=== PATIENT | female | born 1990 | race Hispanic/Latino ===

== ENCOUNTER 2018-04-21 16:06 | Emergency (ER) | payer OTHER, SELFPAY ==
[2018-04-21 17:06] LABS: Absolute Lymphocytes (CBC) 1.4 K/uL (0.7-4.9); Absolute Monocytes 0.4 K/uL (0.1-1.3); Absolute Neutrophil 6.7 K/uL (1.8-8.0); Basophils % 0.3 % (0-1.3); Eosinophils % 0.6 % (0-4.4); Hematocrit 41.8 % (36.0-45.0); Lymphocytes % 16.1 % (15.3-44.8); MCH 32.2 pg (27.0-35.0); MCV 91.2 fL (80-100); MPV 8.2 fL (7.6-11.3); Monocytes % 4.9 % (3.3-12.3); RBC Red Blood Cell Count 4.59 M/uL (3.86-4.86)
[2018-04-21 17:57] LABS: BUN Blood Urea Nitrogen 11 mg/dL (7-18); Bicarbonate 28 mmol/L (21-32); Glucose Level 82 mg/dL (74-106); HCG, Quantitative 49347 mIU/mL (1-3); Potassium 3.6 mmol/L (3.5-5.1); Sodium Level 140 mmol/L (136-145)
--- NOTE | 2018-04-21 17:59 | EDPHYS ---
Physician Documentation [facility] Name: Naomie Bauer Age: 27 yrs Sex: Female : 1990 Arrival Date: 04/21/2018 Time: 16:09 Bed 26 Private MD: ED Physician Ronni Jenkins HPI: 04/21 16:59 This 27 yrs old Female presents to ER via Ambulatory with complaints of 8 wks kb , Abdominal Cramping, Vaginal Bleeding. 17:00 The patient presents to the emergency department with abdominal pain, of the right kb lower quadrant and left lower quadrant, described as crampy, vaginal bleeding, described as spotting. The estimated gestational age is 8 weeks. course: care: private OB physician, Dr. Thornton, Leakage of Fluid: none appreciated, Ultrasound: the patient has not had an ultrasound, Risk/complications: no obvious risks or complications are appreciated. Previous pregnancies: in previous pregnancies patient has had. Associated signs and symptoms: Pertinent positives: abdominal pain, vaginal bleeding. The patient has not experienced similar symptoms in the past. The patient has been recently seen by a physician: Dr. Thornton 1 week(s) ago. 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 - Social history:: Smoking status: Patient/guardian denies using tobacco. - Ebola Screening: : Patient negative for fever greater than or equal to 101.5 degrees Fahrenheit, and additional compatible Ebola Virus Disease symptoms Patient denies exposure to infectious person Patient denies travel to an Ebola-affected area in the 21 days before illness onset No symptoms or risks identified at this time. ROS: 17:00 Constitutional: Negative for fever, chills, and weight loss, Cardiovascular: Negative kb for chest pain, palpitations, and edema, Respiratory: Negative for shortness of breath, cough, wheezing, and pleuritic chest pain, MS/Extremity: Negative for injury and deformity, Skin: Negative for injury, rash, and discoloration, Neuro: Negative for headache, weakness, numbness, tingling, and seizure. 17:00 Abdomen/GI: Positive for abdominal cramps. 17:00 : Positive for vaginal bleeding. Exam: 17:00 Constitutional: This is a well developed, well nourished patient who is awake, alert, kb and in no acute distress. Head/Face: Normocephalic, atraumatic. Chest/axilla: Normal chest wall appearance and motion. Nontender with no deformity. No lesions are appreciated. Cardiovascular: Regular rate and rhythm with a normal S1 and S2. No gallops, murmurs, or rubs. Normal PMI, no JVD. No pulse deficits. Respiratory: Lungs have equal breath sounds bilaterally, clear to auscultation and percussion. No rales, rhonchi or wheezes noted. No increased work of breathing, no retractions or nasal flaring. Abdomen/GI: Soft, non-tender, with normal bowel sounds. No distension or tympany. No guarding or rebound. No evidence of tenderness throughout. Skin: Warm, dry with normal turgor. Normal color with no rashes, no lesions, and no evidence of cellulitis. MS/ Extremity: Pulses equal, no cyanosis. Neurovascular intact. Full, normal range of motion. Neuro: Awake and alert, GCS 15, oriented to person, place, time, and situation. Cranial nerves II-XII grossly intact. Motor strength 5/5 in all extremities. Sensory grossly intact. Cerebellar exam normal. Normal gait. Vital Signs: 16:26 Pulse 68; Resp 16; Temp 97.8; Pulse Ox 99% on R/A; Weight 69.85 kg; Height 5 ft. 5 in. sg (165.10 cm); Pain 3/10; 16:27 BP 124 / 87; sg 17:59 BP 123 / 96; Pulse 81; Resp 18; Pulse Ox 95% on R/A; tl3 16:26 Body Mass Index 25.63 (69.85 kg, 165.10 cm) MDM: 16:28 Patient medically screened. kb 16:59 Data reviewed: vital signs, nurses notes. Data interpreted: Pulse oximetry: on room air kb is 99 %. Interpretation: normal. 17:58 Counseling: I had a detailed discussion with the patient and/or guardian regarding: the kb historical points, exam findings, and any diagnostic results supporting the discharge/admit diagnosis, lab results, radiology results, the need for outpatient follow up, an OB/Gyne specialist, to return to the emergency department if symptoms worsen or persist or if there are any questions or concerns that arise at home. 04/21 16:32 Order name: Quantitative Hcg; Complete Time: 17:57 kb 04/21 16:32 Order name: Abo/rh Typing; Complete Time: 17:29 kb 04/21 16:32 Order name: Basic Metabolic Panel; Complete Time: 17:57 kb 04/21 16:32 Order name: CBC with Diff; Complete Time: 17:08 kb 04/21 16:42 Order name: Urine Dipstick--Ancillary (enter results) eb 04/21 16:42 Order name: Urine --Ancillary (enter results) eb 04/21 16:32 Order name: Urine Test (obtain specimen); Complete Time: 17:08 kb 04/21 16:32 Order name: IV Saline Lock; Complete Time: 16:56 kb 04/21 16:32 Order name: Labs collected and sent; Complete Time: 16:56 kb 04/21 16:32 Order name: NPO; Complete Time: 17:08 kb 04/21 16:32 Order name: Urine Dipstick-Ancillary (obtain specimen); Complete Time: 17:08 kb 04/21 16:59 Order name: US Transvaginal Ob kb Administered Medications: No medications were administered Disposition: 18:39 Co-signature as Attending Physician, Ronni Jenkins MD. Disposition: 04/21/18 17:58 Discharged to Home. Impression: Less than 8 weeks gestation of . - Condition is Stable. - Discharge Instructions: First Trimester of , [id number]. - Medication Reconciliation Form, Thank You Letter, Antibiotic Education, Prescription Opioid Use form. - Follow up: Emergency Department; When: As needed; Reason: Worsening of condition. Follow up: Private Physician; When: 2 - 3 days; Reason: Recheck today's complaints, Continuance of care, Re-evaluation by your physician. Signatures: Dispatcher [employer] Elmira Fowler, Ryan Trevizo RN RN sg Starr, Gregory, MD MD Yvette Martin RN RN tl3 Corrections: (The following items were deleted from the chart) 18:18 17:58 04/21/2018 17:58 Discharged to Home. Impression: Less than 8 weeks gestation of tl3 . Condition is Stable. Forms are Medication Reconciliation Form, Thank You Letter, Antibiotic Education, Prescription Opioid Use. Follow up: Emergency Department; When: As needed; Reason: Worsening of condition. Follow up: Private Physician; When: 2 - 3 days; Reason: Recheck today's complaints, Continuance of care, Re-evaluation by your physician. kb
--- NOTE | 2018-04-21 17:59 | ER ---
Nurse's Notes [facility] Name: Naomie Bauer Age: 27 yrs Sex: Female : 1990 Arrival Date: 04/21/2018 Time: 16:09 Bed 26 Private MD: Diagnosis: Less than 8 weeks gestation of Presentation: 04/21 16:25 Presenting complaint: Patient states: Lower abdominal cramping, and having vaginal sg bleeding that started today, sent me here to get evaluated because the vaginal bleeding has now increased to a heavy flow. Transition of care: patient was not received from another setting of care. Onset of symptoms was April 21, 2018. Risk Assessment: Do you want to hurt yourself or someone else? Patient reports no desire to harm self or others. Care prior to arrival: None. 16:25 Method Of Arrival: Ambulatory sg 16:25 Acuity: WARREN 3 sg 18:18 Initial Sepsis Screen: Does the patient meet any 2 criteria? No. Patient's initial tl3 sepsis screen is negative. Does the patient have a suspected source of infection? No. Patient's initial sepsis screen is negative. 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 - Social history:: Smoking status: Patient/guardian denies using tobacco. - Ebola Screening: : Patient negative for fever greater than or equal to 101.5 degrees Fahrenheit, and additional compatible Ebola Virus Disease symptoms Patient denies exposure to infectious person Patient denies travel to an Ebola-affected area in the 21 days before illness onset No symptoms or risks identified at this time. Screenin:44 Abuse screen: Denies threats or abuse. Nutritional screening: No deficits noted. tl3 Tuberculosis screening: No symptoms or risk factors identified. Fall Risk None identified. Assessment: 16:44 General: Appears in no apparent distress. comfortable, slender, well groomed, well tl3 developed, well nourished, Behavior is calm, cooperative, appropriate for age. Pain: Complains of pain in right lower quadrant and left lower quadrant Quality of pain is described as mild intermittent cramping. Neuro: Level of Consciousness is awake, alert, obeys commands, Oriented to person, place, time, situation, Appropriate for age. Cardiovascular: Patient's skin is warm and dry. Respiratory: Airway is patent Respiratory effort is even, unlabored, Respiratory pattern is regular, symmetrical. GI: Bowel sounds present X 4 quads. Abd is soft and non tender X 4 quads. : Urine is. EENT: No signs and/or symptoms were reported regarding the EENT system. Derm: No signs and/or symptoms reported regarding the dermatologic system. Musculoskeletal: No signs and/or symptoms reported regarding the musculoskeletal system. 17:59 Reassessment: No changes from previously documented assessment. Patient and/or family tl3 updated on plan of care and expected duration. Pain level reassessed. Patient is alert, oriented x 3, equal unlabored respirations, skin warm/dry/pink. no needs at this time. Vital Signs: 16:26 Pulse 68; Resp 16; Temp 97.8; Pulse Ox 99% on R/A; Weight 69.85 kg; Height 5 ft. 5 in. sg (165.10 cm); Pain 3/10; 16:27 BP 124 / 87; sg 17:59 BP 123 / 96; Pulse 81; Resp 18; Pulse Ox 95% on R/A; tl3 16:26 Body Mass Index 25.63 (69.85 kg, 165.10 cm) ED Course: 16:09 Patient arrived in ED. mr 16:13 Elmira Browning FNP-C is [facility]. kb 16:13 Ronni Jenkins MD is Attending Physician. kb 16:26 Triage completed. sg 16:28 Yvette Martin, RENETTA is Primary Nurse. tl3 16:28 Arm band placed on. sg 16:44 Patient has correct armband on for positive identification. Placed in gown. Bed in low tl3 position. Call light in reach. Side rails up X 1. Pulse ox on. NIBP on. Warm blanket given. Pillow given. 16:44 No provider procedures requiring assistance completed. Initial lab(s) drawn, by va, tl3 sent to lab. Urine collected: clean catch specimen, clear. Inserted saline lock: 22 gauge in left antecubital area, using aseptic technique. Blood collected. 18:17 IV discontinued, intact, bleeding controlled, No redness/swelling at site. Pressure tl3 dressing applied. 18:20 US Transvaginal Ob In Process Unspecified. EDMS Administered Medications: No medications were administered Outcome: 17:58 Discharge ordered by . shamar 18:17 Discharged to home ambulatory. tl3 18:17 Condition: good 18:17 Discharge instructions given to patient, family, Instructed on follow up and referral plans. 18:18 Patient left the ED. tl3 Signatures: Dispatcher [employer] EDMS Elmira Browning, IT TECHNICAL SPECIALIST-C IT TECHNICAL SPECIALIST-Ryan Hahn, RN RN Gricel Bone Tammy, RN RN tl3
--- NOTE | 2018-04-21 18:39 | RAD REPORT ---
EXAM DESCRIPTION: US - Transvaginal OB - 04/21/2018 6:20 pm CLINICAL HISTORY: ABD CRAMPING, COMPARISON: Transvaginal OB dated 08/23/2017 FINDINGS: A single gestational sac is seen within the uterus. The shape of the sac is within normal limits for gestational age. Within the sac is a single pole with crown-rump length of 5 mm, cor relating to estimated gestational age of 6 weeks 1 day. Estimated date of delivery is 12/13/2018. Heart rate is 124 BPM.. The placenta is not yet developed due to early gestational age. The maternal adnexa and ovaries are within normal limits. Normal Doppler blood flow was demonstrated to both ovaries. 4 cm right ovarian cyst. IMPRESSION: Single live early intrauterine gestation with estimated gestational age of 6 weeks 1 day , JIMBO 12/13/2018. No unusual or unexpected finding.
[2018-04-21 20:29] LABS: Urine Blood 3+ (NEG); Urine Glucose NEGATIVE (NEG); Urine Protein 1+ (NEG); Urine pH 7.5 (5.0-7.0)
== END 2018-04-21 18:18 | disposition home or self-care (01) ==
LOC: ER 16:06
DX: O26.851 Spotting complicating pregnancy, first trimester (principal); Z3A.01 Less than 8 weeks gestation of pregnancy
CPT/HCPCS: 36415; 76817; 80048; 81003; 81025; 84702; 85025; 86900; 86901; 99284

== ENCOUNTER 2018-12-03 10:31 | Inpatient (IN) | payer OTHER ==
[2018-12-03] MEDS ORDERED: CARBOPROST TROME 250 MCG/ML IM PRN (10:41)
[2018-12-03] MEDS ORDERED: METHYLERGONOVINE 0.2MG/ML AMP IM PRN (10:41)
[2018-12-03] MEDS ORDERED: PROMETHAZINE 25 MG/ML VIAL IM PRN (10:41)
[2018-12-03] MEDS ORDERED: MIDAZOLAM HCL 2 MG/2 ML INJ IV PRN (10:41)
[2018-12-03] MEDS ORDERED: BUTORPHANOL 1 MG/ML INJ IV PRN (10:41)
[2018-12-03] MEDS ORDERED: Ringers Lactate 1,000 ML IV PRN (10:41)
[2018-12-03] MEDS ORDERED: MEPERIDINE HCL 25 MG/0.5 ML IV PRN (10:41)
[2018-12-03] MEDS ORDERED: Ringers Lactate 1,000 ML IV SCH (11:00)
[2018-12-03] MEDS ORDERED: OXYTOCIN/LR 20 UNIT/1,000 ML BAG IV SCH ×2 (11:00→17:00)
[2018-12-03 11:07] LABS: RPR Titer ND
[2018-12-03 11:17] LABS: Urine Appearance CLOUDY; Urine Blood 3+ (NEG); Urine Color DK YELLOW; Urine Glucose NEGATIVE (NEG); Urine Protein 1+ (NEG); Urine Specific Gravity 1.025 (1.005-1.030); Urine pH 6.5 (5.0-7.0)
[2018-12-03 11:21] LABS: Absolute Lymphocytes (CBC) 1.2 K/uL (0.7-4.9); Absolute Monocytes 0.6 K/uL (0.1-1.3); Absolute Neutrophil 10.9 K/uL (1.8-8.0); Basophils % 0.3 % (0-1.3); Eosinophils % 0.1 % (0-4.4); Hematocrit 44.4 % (36.0-45.0); Lymphocytes % 9.3 % (15.3-44.8); MPV 8.9 fL (7.6-11.3); Monocytes % 4.4 % (3.3-12.3); RBC Red Blood Cell Count 4.74 M/uL (3.86-4.86)
[2018-12-03 11:35] LABS: Urine Microscopic Reflex ORDER UMIC
[2018-12-03 11:58] LABS: Blood Morphology Comment NOT SEEN (NOT SEEN); Platelet Estimate ADEQ; Urine Bacteria 20-50 /HPF (<20); Urine White Blood Cell Casts OK
[2018-12-03 11:59] LABS: Urine Culture Reflex Order REFLEXED
[2018-12-03 12:00] LABS: Urine Bilirubin 1+ (NEG)
[2018-12-03 12:46] VITALS: BMI 30.2
[2018-12-03] MEDS ORDERED: LIDOCAINE 1% MPF 30 ML VIAL ONE (14:43)
[2018-12-03] MEDS ORDERED: Oxycodone HCl/Acetaminophen 1 TAB TAB PO PRN ×2 (16:44)
[2018-12-03] MEDS ORDERED: DIPHENHYDRAMINE 25 MG TAB/CAP PO PRN (16:44)
[2018-12-03] MEDS ORDERED: BISACODYL 10 MG RECTAL SUPP RECT PRN (16:44)
[2018-12-03] MEDS ORDERED: DOCUSATE NA/SENNA CONC 1 TAB PO PRN (16:44)
[2018-12-03] MEDS ORDERED: ACETAMINOPHEN 500 MG TAB PO PRN (16:44)
--- NOTE | 2018-12-03 17:49 | PREOPHP ---
Date of Admission: 12/03/2018 History Of Present Illness: This is a 27-year-old 2, para 0, 38 weeks 4 days, has been up to labor and delivery twice in last 24 hours, came to my office, was noted to be in active labor 4 cm in the office, 90% effaced, vertex -1 station. Membranes bulging. Sent to labor and delivery. She is now 5 to 5.5 cm, 100% effaced, membranes bulging, rupture of membranes, has been using Lamaze glenroy thing techniques to best advantage. Full labor talk given. She is Rh positive, immune to Rubella, n egative beta strep screen. Anticipate delivery sometime later this afternoon. JOANNE/JAMES Voice ID: [id number]
[2018-12-03] MEDS ORDERED: CEFAZOLIN/SWI 1gm 1 GM/10 ML SYR IVP ONE (18:30)
[2018-12-03] MEDS ORDERED: CEFAZOLIN/SWI 1gm 1 GM/10 ML SYR ONE (18:41)
[2018-12-03] MEDS: IBUPROFEN 200 MG TAB PO PRN (19:39)
--- NOTE | 2018-12-03 20:01 | PN ---
The patient is now complete and pushing. She is very effective pusher, hopefully will not need much longer. Baby still looks good on the monitor. Vital signs stable. JOANNE/JAMES Voice ID: [id number] Report ID: [id number]
[2018-12-03 23:47] LABS: RPR (Rapid Plasma Reagin) NON-REACT (NON-REACT)
[2018-12-04] MEDS: IBUPROFEN 200 MG TAB PO PRN (15:32)
[2018-12-04 17:18] VITALS: BP 122/67; TEMP 97.2
--- NOTE | 2018-12-05 05:59 | DS ---
Date of Discharge: 12/04/2018 Hospital Course: Naomie Bauer is a 27-year-old primigravida at 38 weeks 4 days, came into my office in active labor, sent to Labor and Delivery. Noted to be 4 cm, 100% effaced, vertex, -1 station in m y office. Started on light Pitocin augmentation, progressed rapidly. Rh positive. Immune to Rubell a. Negative beta strep screen. Short second stage of 30 minutes to 45 minutes. Spontaneous vaginal delivery of 7 pound 10 ounce female, Apgars 9 and 9. First degree laceration on the right side of t he introitus, L shaped sutured with 2-0 chromic. Schultze delivery of the placenta was inspected and noted to be intact and normal, 300 cc or less blood loss. afebrile, ambulating and voidi ng. Lochia is normal. Will be dismissed later today. To report back to my office in 6 weeks for fo llowup, to report any temperature elevation of 100 degrees or greater, severe pain, heavy bleeding, o r any other type of abnormality. Request no analgesics on dismissal. Final Diagnoses: Intrauterine gestation, 38 weeks 4 days, spontaneous labor, and vaginal delivery. JOANNE/JAMES Voice ID: [id number] Report ID: [id number]
[2018-12-05 19:11] LABS: HBsAG Nonreactive (Nonreactive)
--- NOTE | 2018-12-09 15:58 | OP ---
Surgeon: Marck Thornton MD A 27-year-old primigravida, 38 weeks 4 days, came to the office in active labor, sent to Labor and De livery. Noted to be 4 cm, 100% effaced, vertex, -1 station in my office. Started on light Pitocin. Progressed rapidly, subsequently delivered a 7 pound 10 ounce female, Apgars 9 and 9. First-degree laceration right side of the introitus, sutured with 2-0 chromic. Rossie delivery of the placenta, which inspected and noted to be intact and normal. A 300 cc or less blood loss. Tolerated all proc edures well. Final Diagnoses: Intrauterine gestation, 38 weeks 4 days, spontaneous labor, vaginal delivery. JOANNE/JAMES Voice ID: [id number] Report ID: [id number]
== END 2018-12-04 19:50 | disposition home or self-care (01) | DRG 807 ==
LOC: 2ND-WC 10:31
PROVIDERS: ADMIT Specialist; ATTEND Specialist
PROC: 10E0XZZ Delivery of Products of Conception, External Approach (ICD-10-PCS; principal; 2018-12-03)
PROC: 0HQ9XZZ Repair Perineum Skin, External Approach (ICD-10-PCS; 2018-12-03)
DX: O70.0 First degree perineal laceration during delivery (principal); Z37.0 Single live birth; Z3A.38 38 weeks gestation of pregnancy; Z23 Encounter for immunization
CPT/HCPCS: 36415; 81003; 81015; 85025; 86592; 86850; 86900; 86901; 87086; 87088; 87340; 96372; 99218; J0595; J0690; J2175; J2210; J2550

== ENCOUNTER 2019-03-20 12:24 | Emergency (ER) | payer OTHER, SELFPAY ==
[2019-03-20 14:15] LABS: Absolute Lymphocytes (CBC) 1.1 K/uL (0.7-4.9); Basophils % 0.2 % (0-1.3); Hematocrit 43.4 % (36.0-45.0); Lymphocytes % 10.8 % (15.3-44.8); MPV 8.8 fL (7.6-11.3); RBC Red Blood Cell Count 4.67 M/uL (3.86-4.86)
[2019-03-20 14:30] LABS: Albumin 3.7 g/dL (3.4-5.0); Bilirubin Direct 0.1 mg/dL (0-0.2); Bilirubin Total 0.4 mg/dL (0.2-1.0); Potassium 3.8 mmol/L (3.5-5.1); Protein, Total 7.2 g/dL (6.4-8.2)
[2019-03-20 14:36] LABS: Urine Blood NEGATIVE (NEG); Urine Glucose NEGATIVE (NEG); Urine Protein 1+ (NEG)
[2019-03-20] MEDS ORDERED: NA CHLORIDE 0.9% 1,000 ML ONE (14:38)
[2019-03-20] MEDS ORDERED: KETOROLAC 30 MG/ML INJ ONE (14:38)
--- NOTE | 2019-03-20 15:23 | RAD REPORT ---
EXAM DESCRIPTION: US - Transvaginal Study Probe - 03/20/2019 2:53 pm CLINICAL HISTORY: Suprapubic pain, lower abdominal pain Preliminary findings provided at the time of the study. COMPARISON: None. TECHNIQUE: Endovaginal sonography was performed. FINDINGS: Endometrium is 6 mm in thickness with no focal abnormality. No myometrial mass. Uterus is normal in size at 9.3 x 4.9 x 6.0 cm. Normal size right ovary is seen with normal blood flow in the r ight ovarian stroma. Left ovary was not identifiable due to prominent left adnexal bowel gas. Moderat e free fluid is present in the cul-de-sac and adnexal regions. No involuted or ruptured cyst identifi ed. IMPRESSION: Free fluid is present in the cul-de-sac and bilateral adnexa with no blood or other abno rmal fluid collection. Uterus and right ovary show no suspicious findings. Left ovary and left adnexa are too obscured by bowel gas for assessment.
--- NOTE | 2019-03-20 20:30 | EDPHYS ---
Physician Documentation [facility] Name: Naomie Bauer Age: 28 yrs Sex: Female : 1990 Arrival Date: 03/20/2019 Time: 12:27 Bed 23 Private MD: ED Physician Prabhjot Herrera HPI: 03/20 13:45 This 28 yrs old Female presents to ER via Ambulatory with complaints of cp Dizziness, Abdominal Pain, Fever. 13:45 The patient presents with lightheadedness. cp 13:45 Patient's baseline: Neuro: alert and fully oriented, Motor: no deficits, Ambulation: cp walks without assistance, Speech: normal. 13:45 The patient presents with suprapubic abdominal pain. Onset: The symptoms/episode cp began/occurred suddenly, 1 hour(s) ago. Associated signs and symptoms: Pertinent negatives: diarrhea, dysuria, fever, hematuria, urinary frequency, vaginal bleeding, vaginal discharge. Associated signs and symptoms: Pertinent negatives: chest pain, focal weakness, syncope. Severity of symptoms: in the emergency department the symptoms are unchanged despite home interventions. 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 - Social history:: Smoking status: Patient/guardian denies using tobacco. - Ebola Screening: : Patient denies travel to an Ebola-affected area in the 21 days before illness onset. ROS: 13:55 Constitutional: Negative for body aches, chills, fever, poor PO intake. cp 13:55 Eyes: Negative for injury, pain, redness, and discharge. cp 13:55 ENT: Negative for drainage from ear(s), ear pain, sore throat, difficulty swallowing, difficulty handling secretions. 13:55 Cardiovascular: Negative for chest pain, palpitations. 13:55 Respiratory: Negative for cough, shortness of breath, wheezing. 13:55 Abdomen/GI: Positive for abdominal pain, of the suprapubic area, Negative for vomiting, diarrhea, constipation, black/tarry stool, rectal bleeding. 13:55 Back: Negative for radiated pain. 13:55 : Negative for urinary symptoms, vaginal bleeding, vaginal discharge. 13:55 Skin: Negative for rash. 13:55 Neuro: Positive for dizziness, Negative for altered mental status, headache, weakness. 13:55 All other systems are negative. Exam: 14:00 Constitutional: The patient appears in no acute distress, alert, awake, comfortable, cp non-toxic, well developed, well nourished. 14:00 Head/Face: Normocephalic, atraumatic. cp 14:00 Eyes: Periorbital structures: appear normal, Conjunctiva: normal, no exudate, no injection, Sclera: no appreciated abnormality, Lids and lashes: appear normal, bilaterally. 14:00 ENT: External ear(s): are unremarkable, Nose: is normal, Mouth: is normal, Posterior pharynx: is normal, airway is patent, no erythema, no exudate. 14:00 Chest/axilla: Inspection: normal, Palpation: is normal, no crepitus, no tenderness. 14:00 Cardiovascular: Rate: normal, Rhythm: regular. 14:00 Respiratory: the patient does not display signs of respiratory distress, Respirations: normal, no use of accessory muscles, no retractions, no splinting, no tachypnea, labored breathing, is not present, Breath sounds: are clear throughout, no decreased breath sounds, no stridor, no wheezing. 14:00 Abdomen/GI: Inspection: abdomen appears normal, Bowel sounds: active, all quadrants, Palpation: soft, in all quadrants, mild abdominal tenderness, in the suprapubic area, rebound tenderness, is not appreciated, involuntary guarding, is not appreciated. 14:00 Back: pain, is absent, ROM is normal. 14:00 Skin: no rash present. 15:18 : Pelvic Exam: The exam is refused by the patient/guardian. The risks and cp consequences are understood by the patient, Sexual behavior: the patient is sexually active, method of control is control pills. Vital Signs: 12:34 BP 121 / 77; Pulse 83; Resp 16; Temp 98.3; Pulse Ox 98% on R/A; Weight 74.84 kg (R); aj1 Height 5 ft. 5 in. (165.10 cm); 15:06 BP 112 / 69; Pulse 70; Resp 18; Pulse Ox 99% on R/A; mg2 16:10 BP 113 / 78; Pulse 70; Resp 18; Temp 98; Pulse Ox 100% on R/A; Pain 0/10; mg2 12:34 Body Mass Index 27.46 (74.84 kg, 165.10 cm) aj1 MDM: 13:23 Patient medically screened. cp 13:40 Differential diagnosis: appendicitis, dysmenorrhea, ectopic , nonspecific cp abdominal pain, ovarian cyst, pelvic inflammatory disease, urinary tract infection, vaginosis. 15:53 Data reviewed: vital signs, nurses notes, lab test result(s), radiologic studies, cp ultrasound. 15:53 Counseling: I had a detailed discussion with the patient and/or guardian regarding: the cp historical points, exam findings, and any diagnostic results supporting the discharge/admit diagnosis, lab results, radiology results, the need for outpatient follow up, an OB/Gyne specialist, to return to the emergency department if symptoms worsen or persist or if there are any questions or concerns that arise at home. Response to treatment: the patient's symptoms have markedly improved after treatment, and as a result, I will discharge patient. 03/20 13:37 Order name: IV Saline Lock; Complete Time: 13:51 cp 03/20 13:37 Order name: Labs collected and sent; Complete Time: 13:51 cp 03/20 13:37 Order name: Urine Dipstick-Ancillary (obtain specimen); Complete Time: 13:45 cp 03/20 13:37 Order name: Urine Test (obtain specimen); Complete Time: 13:45 cp Administered Medications: 15:05 Not Given (Patient Refused): TORadol 30 mg IVP once mg2 15:05 Drug: NS 0.9% 1000 ml Route: IV; Rate: 1 bolus; Site: left antecubital; mg2 16:10 Follow up: Response: No adverse reaction; IV Status: Completed infusion; IV Intake: mg2 1000ml Disposition: 03/21 07:27 Co-signature as Attending Physician, Prabhjot Herrera MD I agree with the assessment and kdr plan of care. Disposition: 03/20/19 15:54 Discharged to Home. Impression: Abdominal and pelvic pain. - Condition is Stable. - Discharge Instructions: Abdominal Pain, Adult, Pelvic Pain, Female. - Prescriptions for Ibuprofen 800 mg Oral Tablet - take 1 tablet by ORAL route every 8 hours As needed take with food; 30 tablet. - Medication Reconciliation Form, Thank You Letter, Antibiotic Education, Prescription Opioid Use form. - Follow up: Marck Thornton MD; When: 2 - 3 days; Reason: Worsening of condition. - Problem is new. - Symptoms have improved. Signatures: Georgette Ferrari RN RN aj1 Prabhjot Herrera MD MD kdr Yonatan Victoria PA PA cp Mk Batista RN RN mg2 Corrections: (The following items were deleted from the chart) 03/20 16:11 15:54 03/20/2019 15:54 Discharged to Home. Impression: Abdominal and pelvic pain. mg2 Condition is Stable. Forms are Medication Reconciliation Form, Thank You Letter, Antibiotic Education, Prescription Opioid Use. Follow up: Marck Thornton; When: 2 - 3 days; Reason: Worsening of condition. Problem is new. Symptoms have improved. cp 03/21 13:49 13:48 Patient's baseline: Neuro: alert and fully oriented, Motor: no deficits, cp Ambulation: walks without assistance, Speech: normal, cp
--- NOTE | 2019-03-20 20:32 | ER ---
Nurse's Notes [facility] Name: Naomie Bauer Age: 28 yrs Sex: Female : 1990 Arrival Date: 03/20/2019 Time: 12:27 Bed 23 Private MD: Diagnosis: Abdominal and pelvic pain Presentation: 03/20 12:32 Presenting complaint: Patient states: Suprapubic pain for the past hour. Denies aj1 dysuria, urinary frequency. Denies vaginal discharge. Denies N/V/D. Transition of care: patient was not received from another setting of care. Onset of symptoms was March 20, 2019. Risk Assessment: Do you want to hurt yourself or someone else? Patient reports no desire to harm self or others. Initial Sepsis Screen: Does the patient meet any 2 criteria? No. Patient's initial sepsis screen is negative. Does the patient have a suspected source of infection? Yes: Acute abdominal pain. Care prior to arrival: None. 12:32 Method Of Arrival: Ambulatory aj 12:32 Acuity: WARREN 3 aj1 Triage Assessment: 12:34 General: Appears in no apparent distress. comfortable, Behavior is calm, cooperative, aj1 appropriate for age. Pain: Complains of pain in suprapubic area Pain currently is 5 out of 10 on a pain scale. Neuro: Level of Consciousness is awake, alert, obeys commands. Cardiovascular: Patient's skin is warm and dry. Respiratory: Airway is patent Respiratory effort is even, unlabored, Respiratory pattern is regular, symmetrical. GI: Reports lower abdominal pain, Patient currently denies diarrhea, nausea, vomiting. : Denies burning with urination, discharge, urinary frequency. 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 - Social history:: Smoking status: Patient/guardian denies using tobacco. - Ebola Screening: : Patient denies travel to an Ebola-affected area in the 21 days before illness onset. Screenin:42 Abuse screen: Denies threats or abuse. Denies injuries from another. Nutritional mg2 screening: No deficits noted. Tuberculosis screening: No symptoms or risk factors identified. Fall Risk IV access (20 points). Assessment: 14:42 General: Appears in no apparent distress. comfortable, Behavior is calm, cooperative. mg2 Pain: Complains of pain in abdomen and suprapubic area Pain does not radiate. Pain currently is 4 out of 10 on a pain scale. Quality of pain is described as aching, Pain began gradually. Neuro: Level of Consciousness is awake, alert, obeys commands, Oriented to person, place, time, situation. Cardiovascular: Capillary refill < 3 seconds Patient's skin is warm and dry. Respiratory: Airway is patent Respiratory effort is even, unlabored, Respiratory pattern is regular, symmetrical. GI: Bowel sounds present X 4 quads. Abd is soft and non tender. : pls see urine dip. EENT: No signs and/or symptoms were reported regarding the EENT system. Derm: Skin is intact, is healthy with good turgor, Skin is pink, warm \T\ dry. normal. Musculoskeletal: Circulation, motion, and sensation intact. Capillary refill < 3 seconds. 14:44 Reassessment: sent to ultrasound via wheelchair. mg2 16:10 Reassessment: Patient denies pain at this time. Patient states feeling better. mg2 Vital Signs: 12:34 BP 121 / 77; Pulse 83; Resp 16; Temp 98.3; Pulse Ox 98% on R/A; Weight 74.84 kg (R); aj1 Height 5 ft. 5 in. (165.10 cm); 15:06 BP 112 / 69; Pulse 70; Resp 18; Pulse Ox 99% on R/A; mg2 16:10 BP 113 / 78; Pulse 70; Resp 18; Temp 98; Pulse Ox 100% on R/A; Pain 0/10; mg2 12:34 Body Mass Index 27.46 (74.84 kg, 165.10 cm) aj1 ED Course: 12:27 Patient arrived in ED. mr 12:33 Triage completed. aj1 12:34 Arm band placed on Patient placed in waiting room, Patient notified of wait time. aj1 13:22 Yonatan Victoria PA is PHCP. cp 13:22 Prabhjot Herrera MD is Attending Physician. cp 13:44 Mk Batista, RN is Primary Nurse. mg2 13:51 Initial lab(s) drawn, by me, sent to lab. Inserted saline lock: 22 gauge in left lt1 antecubital area, using aseptic technique. 14:44 Patient has correct armband on for positive identification. Pulse ox on. NIBP on. Door mg2 closed. Warm blanket given. 14:44 No provider procedures requiring assistance completed. mg2 15:53 Marck Thornton MD is Referral Physician. cp 16:10 IV discontinued, intact, bleeding controlled, No redness/swelling at site. Pressure mg2 dressing applied. Administered Medications: 15:05 Not Given (Patient Refused): TORadol 30 mg IVP once mg2 15:05 Drug: NS 0.9% 1000 ml Route: IV; Rate: 1 bolus; Site: left antecubital; mg2 16:10 Follow up: Response: No adverse reaction; IV Status: Completed infusion; IV Intake: mg2 1000ml Intake: 16:10 IV: 1000ml; Total: 1000ml. mg2 Outcome: 15:54 Discharge ordered by MD. cp 16:11 Discharged to home ambulatory. mg2 16:11 Condition: stable 16:11 Discharge instructions given to patient, Instructed on discharge instructions, follow up and referral plans. medication usage, Demonstrated understanding of instructions, follow-up care, medications, Prescriptions given X 1. 16:11 Patient left the ED. mg2 Signatures: Georgette Ferrari RN RN aj1 Lizandro Gricel mr Esme, Yonatan, PA PA cp Mk Batista RN RN mg2 Villar, Anne lt1
[2019-03-20 22:18] VITALS: BP 113/78; TEMP 98; O2SAT 100
== END 2019-03-20 16:11 | disposition home or self-care (01) ==
LOC: ER 12:24
DX: R10.2 Pelvic and perineal pain (principal); R10.9 Unspecified abdominal pain
CPT/HCPCS: 36415; 76830; 80048; 80076; 81003; 81025; 85025; 96360; 99284; J7030

== ENCOUNTER 2021-01-17 04:12 | Inpatient (IN) | payer BC, OTHER ==
[2021-01-17] MEDS ORDERED: BUTORPHANOL 1 MG/ML INJ IV PRN (04:14)
[2021-01-17] MEDS ORDERED: METHYLERGONOVINE 0.2MG/ML AMP IM PRN (04:14)
[2021-01-17] MEDS ORDERED: Ringers Lactate 1,000 ML IV PRN (04:14)
[2021-01-17] MEDS ORDERED: PROMETHAZINE INJ 25 MG/ML AMP IM PRN (04:14)
[2021-01-17] MEDS ORDERED: Ringers Lactate 1,000 ML IV SCH (05:00)
[2021-01-17] MEDS ORDERED: OXYTOCIN/LR 20 UNIT/1,000 ML BAG IV SCH (05:00)
[2021-01-17 05:14] LABS: Urine Appearance CLOUDY (Clear); Urine Bilirubin NEGATIVE (Negative); Urine Blood NEGATIVE (Negative); Urine Color YELLOW (Yellow); Urine Glucose NEGATIVE (Negative); Urine Protein NEGATIVE (Negative); Urine pH 6.5 (5.0-7.0)
[2021-01-17 05:19] LABS: Absolute Lymphocytes (CBC) 1.7 K/uL (0.7-4.9); Basophils % 0.5 % (0-1.3); Hematocrit 39.7 % (36.0-45.0); Lymphocytes % 24.2 % (15.3-44.8); RBC Red Blood Cell Count 4.14 M/uL (3.86-4.86)
[2021-01-17 05:23] VITALS: BMI 29.9
[2021-01-17 05:31] LABS: Urine Microscopic Reflex ORDER UMIC
[2021-01-17] MEDS ORDERED: IBUPROFEN 600 MG TAB PO PRN (06:00)
[2021-01-17 06:45] LABS: Urine Amorphous Sediment 1+ /HPF (NONE SEEN); Urine Bacteria >50 /HPF (<20); Urine RBC NONE SEEN /HPF (NONE SEEN)
--- NOTE | 2021-01-17 10:17 | PREOPHP ---
Date of Admission: 01/17/2021 History Of Present Illness: Naomie Bauer is a 30-year-old 3, para 1, at 39 weeks gestation, followed antepartum without complications. Rh positive. Immune to Rubella. Negative strep. COVID status pending. Family History: Mother with breast cancer. Otherwise noncontributory. Past Medical History: No serious medical illnesses. Past Surgical History: No previous surgeries. Allergies: NO ALLERGIES. Social History: Does not smoke. Physical Examination: HEENT: Clear. Pupils equal, round, reactive to light and accommodation. Conjunctivae well perfused . No oral, lingual, or buccal lesions. Chest and Lungs: Clear. Heart: Without murmurs, thrills, heaves, or rubs. Breasts: Without masses on previous visits. Abdomen: Term size. Extremities: Clear without edema, cyanosis, or clubbing. Assessment And Plan: The patient is approximately 2.5 to 3 cm, somewhat posterior, 60% effaced, vert ex, -1 station. Rupture of membranes. Clear fluid. Anticipate more active labor. Full labor talk given. Doing well at this p oint. NBC/MODL Voice ID: [id number]
[2021-01-17] MEDS ORDERED: FENTANYL/BUPIVACAINE/NS/PF 200 MCG/100 ML BAG EP PRN (12:13)
[2021-01-17] MEDS ORDERED: FENTANYL CITR 100 MCG/2 ML IV ONE (12:13)
[2021-01-17] MEDS ORDERED: ROPIVACAINE HCL 0.2% 20ML AMP IV ONE (12:13)
[2021-01-17] MEDS ORDERED: BUPIVACAINE 0.25% PF 10 ML VIAL IJ PRN (12:13)
[2021-01-17] MEDS: METHYLERGONOVINE 0.2 MG TAB PO PRN ×3 (14:57→23:00)
--- NOTE | 2021-01-17 15:06 | PN ---
Patient is alen regularly. It was just checked 30 minutes ago, was 4 cm, it is going natural at this point. Baby looks good. She is alen every 2 minutes. The baby is probably posterior as she is having some back discomfort. She will start pelvic rocks and I anticipate more rapid prog ress soon. JOANNE/JAMES Voice ID: [id number] Report ID: [id number]
--- NOTE | 2021-01-17 15:37 | PN ---
The patient is now approximately 7 cm, 90% to 100% effaced, vertex 0 station. I think she is getting ready to make good progress. She is going natural at this point. She is on 8 milliunits of Pitocin . Anticipate delivery relatively soon. JOANNE/JAMES Voice ID: [id number] Report ID: [id number]
--- NOTE | 2021-01-17 15:49 | OP ---
Surgeon: Marck Thornton MD A 30-year-old 3, para 1, 39 weeks gestation, delivered an estimated 8-pound female. Nuchal c ord x2 tightly, but good Apgars 9 and 9. No episiotomy. No laceration. Schultze delivery of the pl acenta. Uterus mildly hypotonic. 0.2 mg of Methergine, IV drip Pitocin, massage. Estimated blood lo ss 400, possibly 425 cc. Strep negative. COVID negative. Rh positive. Immune to Rubella. Tolerat ed all procedures well. Epidural was just instituted the last and gave really minimal effect. Final Diagnoses: Term intrauterine 39 weeks, spontaneous vaginal delivery, nuchal cord x2. Epidural anesthesia. Mild uterine hypotonus. NBC/MODL Voice ID: [id number] Report ID: [id number]
[2021-01-17 23:36] LABS: RPR (Rapid Plasma Reagin) NON-REACT (NON-REACT)
[2021-01-18] MEDS ORDERED: IBUPROFEN 600 MG TAB ONE (01:07)
[2021-01-18] MEDS: METHYLERGONOVINE 0.2 MG TAB PO PRN (06:20)
--- NOTE | 2021-01-18 09:23 | DS ---
This is a 30-year-old 3, para 1, 39 weeks' gestation, delivered an 3-evjho-9-ounce female, Ap gars 9 and 9. Nuchal cord x2. Epidural anesthesia although is minimally effective. Rafal john of the placenta. Mild uterine hypotonus. Methergine 0.2 mg IM as well as IV drip Pitocin massage . Estimated blood loss 400 cc approximately. The patient is Rh positive, immune to rubella, negativ e strep, negative COVID. , afebrile, ambulating, voiding. Lochia is normal. The patient is taking no analgesics, requests none on dismissal. She has had her Tdap immunization. She has no post epidural problems. Will be dismissed later today to report back to my office in 6 weeks for fol lowup, to report any temperature elevation of 100 degrees or greater, severe pain, heavy bleeding, or any other type abnormalities. Final Diagnoses: Term intrauterine of 39 weeks. Vaginal delivery. Epidural anesthesia. Mild uterine hypertonus. JOANNE/CEL Voice ID: [id number] Report ID: [id number]
[2021-01-18 11:39] VITALS: BP 125/78; TEMP 97.9
[2021-01-19 19:20] LABS: HBsAG Nonreactive (Nonreactive)
== END 2021-01-18 16:15 | disposition home or self-care (01) | DRG 807 ==
LOC: 2ND-WC 04:12
PROVIDERS: ADMIT Specialist; ATTEND Specialist
PROC: 10E0XZZ Delivery of Products of Conception, External Approach (ICD-10-PCS; principal; 2021-01-17)
PROC: 10907ZC Drainage of Amniotic Fluid, Therapeutic from Products of Conception, Via Natural or Artificial Opening (ICD-10-PCS; 2021-01-17)
DX: O62.2 Other uterine inertia (principal); Z37.0 Single live birth; O69.81X0 Labor and delivery complicated by cord around neck, without compression, not applicable or unspecified; Z3A.39 39 weeks gestation of pregnancy; Z20.822 Contact with and (suspected) exposure to COVID-19
CPT/HCPCS: 36415; 81003; 81015; 85025; 86592; 86850; 86900; 86901; 87086; 87088; 87340; J0595; J2210; J2550; J2590; J7120; U0003